=== PATIENT | male | born 1955 | race Caucasian/White ===

== ENCOUNTER → 2016-07-15 | Outpatient (CLI) | payer BC ==
[~2016-07-15] MED LIST: GADOBUTROL 10 MMOL/10 ML VIAL IV ONE
--- NOTE | 2016-07-15 16:10 | RAD ---
PROCEDURE MRI brain with and without contrast HISTORY Unsteady gait. Right hand numbness and tremors. TECHNIQUE Sagittal T1, axial T1, axial T2, axial FLAIR, axial T2 gradient, diffusion imaging with ADC map, post-contrast axial, and post-contrast coronal sequences are provided. 10 milliliters of intravenous Gadavist was administered without complication. COMPARISON None. FINDINGS The ventricles and sulci are within normal limits for age. There is a cavum septum pellucidum et vergae. FLAIR hyperintensities scattered throughout the supratentorial white matter are nonspecific however most suggestive of mild to moderate small vessel ischemic disease. There is no acute intracranial hemorrhage or extra-axial fluid collection. There is no mass effect or midline shift. There is no restricted diffusion to suggest an acute infarct. Sagittal midline structures are unremarkable. Pituitary and suprasellar region are unremarkable. Intracranial flow voids are preserved. There is nonspecific fluid in the optic sheaths which can be a finding of elevated intracranial pressures. There is ethmoid mucosal thickening bilaterally. There is also left maxillary mucosal thickening. Right greater than left mastoid air cells are opacified. There is no pathologic enhancement. IMPRESSION 1. No acute intracranial findings. 2. Brain parenchymal volume loss and mild to moderate probable small-vessel ischemic disease. Electronically signed by: Gibson Horne MD (July 15, 2016 16:09:08)
--- NOTE | 2016-07-15 16:28 | RAD ---
PROCEDURE MRI cervical spine without contrast. HISTORY Right-sided weakness, stiff neck. Gait disorder. TECHNIQUE Sagittal T1, sagittal T2, sagittal STIR, axial T2, and axial T2 gradient sequences are provided. COMPARISON None. FINDINGS There is no malalignment. There is no marrow edema. There is no worrisome marrow lesion. There is no cord signal abnormality. The cervicomedullary junction is unremarkable. Lymph nodes along the cervical chains are presumed reactive. Degenerative findings by individual level are as follows: C2-C3: Minimal disc osteophyte complex and buckling of ligamentum flavum are noted, without canal or foraminal compromise. C3-C4: There is minimal uncinate process spurring without canal or foraminal compromise. C4-C5: There is no canal or foraminal compromise. C5-C6: There is a tiny central protrusion without canal or foraminal compromise. C6-C7: There is no canal or foraminal compromise. C7-T1: There is no canal or foraminal compromise. T1-T2: There is facet hypertrophy with minimal foraminal narrowing. IMPRESSION There are minimal degenerative changes in the cervical spine without any high-grade canal or foraminal compromise. Electronically signed by: Gibson Horne MD (July 15, 2016 16:26:49)
== END | disposition home or self-care (01) ==
LOC: MRI 14:14
PROVIDERS: ATTEND Psychiatry & Neurology Neurology
DX: M47.892 Other spondylosis, cervical region (principal); R26.9 Unspecified abnormalities of gait and mobility
CPT/HCPCS: 70553; 72141; A9585

== ENCOUNTER → 2016-07-15 | Outpatient (CLI) | payer BC ==
[2016-07-15 10:27] LABS: BARBITURATES NEG (NEG); BENZODIAZEPINES NEG (NEG); CANNABINOIDS POS (NEG); COCAINE NEG (NEG); METHADONE NEG (NEG); OPIATES NEG (NEG); PHENCYCLIDINE NEG (NEG)
[2016-07-15 10:33] LABS: ALBUMIN 3.6 g/dL (3.4-5.0); ALBUMIN/GLOBULIN RATIO 0.9 (1.0-1.7); CALCIUM 8.7 mg/dL (8.5-10.1); CREATININE 0.9 mg/dL (0.7-1.3); GFR 86.4; POTASSIUM 4.1 mmol/L (3.5-5.1); TOTAL BILIRUBIN 0.6 mg/dL (0.2-1.0); TOTAL PROTEIN 7.4 g/dL (6.4-8.2)
== END | disposition home or self-care (01) ==
LOC: LAB 09:51
PROVIDERS: ATTEND Psychiatry & Neurology Neurology
DX: G20 Parkinson's disease (principal)
CPT/HCPCS: 36415; 80053; 82550; 82607; 84443; G0481

== ENCOUNTER → 2017-04-22 | Outpatient (CLI) | payer BC ==
[2017-04-22 13:20] LABS: AMPHETAMINE/METHAMPHETAMINE NEG (NEG); BARBITURATES NEG (NEG); BENZODIAZEPINES NEG (NEG); CANNABINOIDS POS (NEG); COCAINE NEG (NEG); ETHANOL, URINE NEG (NEG); METHADONE NEG (NEG); OPIATES NEG (NEG); PHENCYCLIDINE NEG (NEG)
[2017-04-22 13:39] LABS: THYROID STIM HORMONE (TSH) 1.689 uIU/mL (0.358-3.74)
== END | disposition home or self-care (01) ==
LOC: LAB 12:42
DX: G20 Parkinson's disease (principal); E55.9 Vitamin D deficiency, unspecified
CPT/HCPCS: 36415; 80307; 82306; 84443; 86141

== ENCOUNTER → 2017-06-01 | Outpatient (CLI) | payer BC | END | disposition home or self-care (01) | LOC: ECHO 13:35 | DX: I48.91 Unspecified atrial fibrillation (principal) | CPT/HCPCS: 93306 ==

== ENCOUNTER → 2017-08-08 | Outpatient (CLI) | payer BC ==
[2017-08-08 14:37] LABS: BASO # 0.1 x10^3/uL (0.0-0.2); BASO % 1 % (0-3); EOS # 0.3 x10^3/uL (0.0-0.7); EOS % 4 % (0-3); HEMATOCRIT 42.8 % (39.0-53.0); HEMOGLOBIN 14.9 g/dL (13.0-17.5); LYMPH # 1.2 x10^3/uL (1.0-4.8); LYMPH % 17 % (24-48); MEAN CORPUSCULAR HEMOGLOBIN 34 pg (25-35); MEAN CORPUSCULAR HGB CONC 35 g/dL (31-37); MEAN CORPUSCULAR VOLUME 97 fL (79-100); MONO % 13 % (0-9); NEUT # 4.7 x10^3uL (1.8-7.7); NEUT % 65 % (31-73); PLATELET COUNT 213 x10^3/uL (140-400); RED CELL DISTRIBUTION WIDTH 12.8 % (11.5-14.5); WHITE BLOOD COUNT 7.3 x10^3/uL (4.0-11.0)
[2017-08-08 14:38] LABS: ADD MAN DIFF? YES
[2017-08-08 14:53] LABS: ALBUMIN 3.5 g/dL (3.4-5.0); ALBUMIN/GLOBULIN RATIO 1.1 (1.0-1.7); ALK PHOS 89 U/L (46-116); ALT (SGPT) 16 U/L (16-63); ANION GAP 8 (6-14); AST (SGOT) 25 U/L (15-37); BLOOD UREA NITROGEN 18 mg/dL (8-26); BUN/CREATININE RATIO 26 (6-20); CALCIUM 8.7 mg/dL (8.5-10.1); CARBON DIOXIDE 29 mmol/L (21-32); CHLORIDE 105 mmol/L (98-107); CREATININE 0.7 mg/dL (0.7-1.3); GLUCOSE 106 mg/dL (70-99); POTASSIUM 3.6 mmol/L (3.5-5.1); SODIUM 142 mmol/L (136-145); TOTAL BILIRUBIN 0.4 mg/dL (0.2-1.0); TOTAL PROTEIN 6.8 g/dL (6.4-8.2)
[2017-08-08 14:59] LABS: % BANDS 4 % (0-9); % BASOS 2 % (0-3); % EOS 7 % (0-5); % LYMPHS 19 % (24-48); % MONOS 9 % (0-10); % SEGS 59 % (35-66); PLT ESTIMATE ADEQUATE (ADEQUATE); TOXIC GRANULATION SLIGHT
== END | disposition home or self-care (01) ==
LOC: SPEC 14:15
DX: B45.2 Cutaneous cryptococcosis (principal); G00.9 Bacterial meningitis, unspecified; E78.5 Hyperlipidemia, unspecified; E55.9 Vitamin D deficiency, unspecified
CPT/HCPCS: 36415; 80053; 85007; 85025

== ENCOUNTER → 2019-05-24 | Outpatient (CLI) | payer BC ==
[2017-07-22 11:00] VITALS: BP 118/67
[~2019-05-24] MED LIST changes: +ASPI325T8 PO; +ATOR10TA60 PO; +CARB1TAB2 PO; +CEFTRIAXONE SODIUM IVP; +CLON-77 PO; +DILT120C71 PO; -GADOBUTROL 10 MMOL/10 ML VIAL IV ONE; +LACT1CAP19 PO; +MELO7.5T29 PO
--- NOTE | 2019-05-24 09:06 | CARD ---
MR#: [id number] Date of Study: 05/24/2019 Ordering Physician: VELVET FLORES, Referring Physician: VELVET FLORES, Tech: Elie Gu RDCS APPROVED REPORT EXAM: Two-dimensional and M-mode echocardiogram with Doppler and color Doppler. Other Information Quality : AverageHR: 62bpm Rhythm : NSR INDICATION Atrial Fibrillation RISK FACTORS Hyperlipidemia 2D DIMENSIONS RVDd3.8 (2.9-3.5cm)Left Atrium(2D)4.1 (1.6-4.0cm) IVSd0.9 (0.7-1.1cm)Aortic Root(2D)3.8 (2.0-3.7cm) LVDd5.0 (3.9-5.9cm)LVOT Diameter2.2 (1.8-2.4cm) PWd1.0 (0.7-1.1cm)LVDs3.0 (2.5-4.0cm) FS (%) 39.7 %SV81.5 ml LVEF(%)70.0 (>50%) Aortic Valve AoV Peak Gurinder.138.4cm/Yennifer Peak GR.7.7mmHg LVOT Peak Gurinder.105.0cm/sAVA (VMAX)2.83cm2 Mitral Valve MV E Uzjvvgwy37.1cm/sMV DECEL [id number] MV A Rhcpbxvc23.3cm/sE/A Ratio0.8 MV A Xylgabiy474ce Pulmonary Valve PV Peak Mczmqfvh90.2cm/s Tricuspid Valve RAP ENGTHIIC0ooXm Pulmonary Vein S1 Fpelyucv12.4cm/sD2 Ckkcufxr52.4cm/s PVa padesnfy812lhmd LEFT VENTRICLE The left ventricle is normal size. There is normal left ventricular wall thickness. The left ventricu lar systolic function is normal and the ejection fraction is within normal range. The Ejection Fracti on is 60-65%. There is normal LV segmental wall motion. Transmitral Doppler flow pattern is normal fo r age. There is no ventricular septal defect visualized. RIGHT VENTRICLE The right ventricle is normal size. The right ventricular systolic function is normal. ATRIA The left atrium size is normal. The right atrium size is normal. The interatrial septum is intact wit h no evidence for an atrial septal defect or patent foramen ovale as noted on 2-D or Doppler imaging. AORTIC VALVE The aortic valve is mildly sclerotic. Doppler and Color Flow revealed no significant aortic regurgita tion. There is no significant aortic valvular stenosis. MITRAL VALVE The mitral valve is normal in structure and function. There is no mitral valve stenosis. Doppler and Color Flow revealed no mitral valve regurgitation noted. TRICUSPID VALVE The tricuspid valve is normal in structure and function. Doppler and Color Flow revealed no tricuspid valve regurgitation noted. Unable to assess PA pressure. There is no tricuspid valve stenosis. PULMONIC VALVE Doppler and Color Flow revealed no pulmonic valvular regurgitation. There is no pulmonic valvular amanda nosis. GREAT VESSELS The aortic root is normal in size. The ascending aorta is normal in size. The IVC is normal in size a nd collapses >50% with inspiration. PERICARDIAL EFFUSION There is no pleural effusion. There is no evidence of significant pericardial effusion. Critical Notification Critical Value: No <Conclusion> The left ventricular systolic function is normal and the ejection fraction is within normal range. Th e Ejection Fraction is 60-65%. There is normal LV segmental wall motion. Signed by : Deni Finn, Electronically Approved : 05/24/2019 09:06:00
== END | disposition home or self-care (01) ==
LOC: ECHO 07:48
PROVIDERS: ATTEND Internal Medicine Cardiovascular Disease
DX: I35.1 Nonrheumatic aortic (valve) insufficiency (principal); I48.0 Paroxysmal atrial fibrillation
CPT/HCPCS: 93306

== ENCOUNTER → 2020-04-18 | Outpatient (CLI) | payer BC ==
[2017-07-22 11:00] VITALS: BP 118/67
[~2020-04-18] MED LIST changes: +CARB-183 PO; -CARB1TAB2 PO; +REGADENOSON 0.4 MG/5 ML DISP.SYRIN. IV ONE
--- NOTE | 2020-04-18 13:47 | RAD ---
MR#: [id number] Date of Study: 04/18/2020 Ordering Physician: VELVET FLORES, Referring Physician: LEONID LUEVANO Tech: MISAEL Sharma, ARRT (R) (N) APPROVED REPORT Test Type: Pharmacological Stress Nurse/Tech: Darshan Horner RN Test Indications: A. fib Cardiac History: See EMR. Medications: See EMR. Medical History: COPD, Smoker, See EMR. Resting ECG: SR Resting Heart Rate: 61 bpm Resting Blood Pressure: 144/73mmHg Pretest Chest Pain: No chest pain Nurse/Tech Notes Lungs diminished throughout, heart tones regular. Consent: The procedure was explained to the patient in lay terms. Informed consent was witnessed. Rolly eout was entered into [employer]. History and Stress Test performed by [facility]. Details Pharmacologic stress testing was performed using 0.4mg per 5ml of regadenoson given intravenously ove r 7-10 seconds. Stress Symptoms No chest pain or symptoms. POST EXERCISE Reason for Termination: Infusion complete Max HR: 116 bpm Max Blood Pressure: 138/69mmHg Blood Pressure response to exercise: Normal blood pressure response during stress. Heart Rate response to exercise: WNL Chest Pain: No. Arrhythmia: No. ST Change: No. INTERPRETATION Stress EKG Conclusion: No evidence of stress induced EKG changes. Imaging Protocol IMAGE PROTOCOL: Rest Tc-99m/stress Tc-99m 1 day Rest: Stress: Viability: Radiopharm.Tc99m MbihqyhnrTd87w Sestamibi Gbyx54lTe 32mCi Img Date 04/18/2020 04/18/2020 Inj-Img Tghw80hzk. 60min. Rest Admin Site:IV - Right HandAdministrator:RT Bhaskar (R)(N) Stress Admin Site: IV - Right HandAdministrator: RT Bhaskar (R)(N) STRESS DATA End Diast. Vol.121.0mlLVEDV index BSA54.0ml End Syst. Vol.39.0mlLVESV index BSA17.0ml Myocardial Yndj434.0gEject. Bxocycsx19.0% Stress Scores Regional WT2.00Summed WT7.00 Regional WM0.00Summed WM1.00 LV Perfusion Normal perfusion at stress. Resting apical defect, likely artifact. Wall Motion Normal wall motion. EF > 65% LV Perf. Quant 17 Seg. SSS1.00 17 Seg. SRS7.00 17 Seg. SDS0.00 Stress Defect Extent (% LAD)5.00Rest Defect Extent (% LAD)20.60Rev. Defect Extent (% LAD)0.00 Stress Defect Extent (% LCX) 1.30Rest Defect Extent (% LCX)23.80Rev. Defect Extent (% LCX)0.00 Stress Defect Extent (% RCA)0.00Rest Defect Extent (% RCA)3.30Rev. Defect Extent (% RCA)0.00 Stress Defect Extent (% OTIS)2.00Rest Defect Extent (% OTIS)13.70Rev. Defect Extent (% OTIS)0.00 Other Information Quality:Fair Risk Assessment: Low Risk Conclusion 1. No evidence of stress induced EKG changes. 2. Normal perfusion at stress. Resting images demonstrate apical perfusion defect suggestive of artif act 3. Normal EF at > 65% 4. Low risk study overall. Signed by : Deni Finn, Electronically Approved : 04/18/2020 13:47:28
== END ==
LOC: NM 09:09
PROVIDERS: ATTEND Internal Medicine Cardiovascular Disease
DX: I48.0 Paroxysmal atrial fibrillation (principal); Z87.891 Personal history of nicotine dependence
CPT/HCPCS: 78452; 93017; A9500; J2785

== ENCOUNTER → 2020-11-12 | Outpatient (CLI) | payer BC ==
[2017-07-22 11:00] VITALS: BP 118/67
[~2020-11-12] MED LIST changes: +PERFLUTREN PROTEIN-A MICROSPHR 0.22 MG/ML 3 ML VIAL. IV ONE; -REGADENOSON 0.4 MG/5 ML DISP.SYRIN. IV ONE
--- NOTE | 2020-11-12 16:46 | CARD ---
MR#: [id number] Date of Study: 11/12/2020 Ordering Physician: VELEVT BILLINGS, Referring Physician: VELVET BILLINGS, Tech: Lalo Mallory HODAN APPROVED REPORT EXAM: Two-dimensional and M-mode echocardiogram with Doppler and color Doppler. Other Information Quality : Technically LimitedHR: 54bpm Rhythm : NSR INDICATION Cardiac Disease: RISK FACTORS Hypertension Obesity Hyperlipidemia Smoking 2D DIMENSIONS RVDd3.2 (2.9-3.5cm)Left Atrium(2D)4.0 (1.6-4.0cm) IVSd1.2 (0.7-1.1cm)Aortic Root(2D)3.3 (2.0-3.7cm) LVDd4.8 (3.9-5.9cm)LVOT Diameter2.5 (1.8-2.4cm) PWd1.1 (0.7-1.1cm)LVDs3.5 (2.5-4.0cm) FS (%) 27.0 %SV56.3 ml LVEF(%)52.5 (>50%) Aortic Valve AoV Peak Gurinder.151.4cm/sAoV VTI38.5cm AO Peak GR.9.2mmHgLVOT Peak Gurinder.100.4cm/s AO Mean GR.5mmHgAVA (VMAX)3.15cm2 Mitral Valve MV E Xpsjxgkp62.4cm/sMV DECEL PSHC878uk MV A Bzcvgeme16.2cm/sE/A Ratio1.0 Pulmonary Valve PV Peak Yvvpctku91.6cm/s LEFT VENTRICLE The left ventricle is normal size. There is borderline to mild concentric left ventricular hypertroph y. The left ventricular systolic function is normal. Estimated ejection fraction 60%. There is normal LV segmental wall motion. Transmitral Doppler flow pattern is Grade II-pseudonormal filling dynamics . RIGHT VENTRICLE The right ventricle is normal size. There is normal right ventricular wall thickness. The right ventr icular systolic function is normal. ATRIA The left atrium size is normal. The right atrium size is normal. The interatrial septum is intact wit h no evidence for an atrial septal defect or patent foramen ovale as noted on 2-D or Doppler imaging. AORTIC VALVE The aortic valve is normal in structure and function. Doppler and Color Flow revealed no significant aortic regurgitation. There is no significant aortic valvular stenosis. MITRAL VALVE The mitral valve is normal in structure and function. There is no evidence of mitral valve prolapse. There is no mitral valve stenosis. Doppler and Color-flow revealed mild mitral regurgitation. TRICUSPID VALVE The tricuspid valve is normal in structure and function. Doppler and Color Flow revealed no tricuspid valve regurgitation noted. There is no tricuspid valve stenosis. PULMONIC VALVE The pulmonary valve is normal in structure and function. Doppler and Color Flow revealed mild pulmoni c valvular regurgitation. GREAT VESSELS The aortic root is normal in size. The ascending aorta is normal in size. The IVC is normal in size a nd collapses >50% with inspiration. PERICARDIAL EFFUSION There is no evidence of significant pericardial effusion. Critical Notification Critical Value: No <Conclusion> The left ventricular systolic function is normal. Estimated ejection fraction 60%. There is normal LV segmental wall motion. Transmitral Doppler flow pattern is Grade II-pseudonormal filling dynamics. Mild mitral regurgitation. There is no evidence of significant pericardial effusion. Signed by : Velvet Billings, Electronically Approved : 11/12/2020 16:45:49
== END ==
LOC: ECHO 08:32
PROVIDERS: ATTEND Internal Medicine Cardiovascular Disease
DX: I34.0 Nonrheumatic mitral (valve) insufficiency (principal); I37.1 Nonrheumatic pulmonary valve insufficiency; Z68.44 Body mass index [BMI] 60.0-69.9, adult; I48.0 Paroxysmal atrial fibrillation; I10 Essential (primary) hypertension; E66.9 Obesity, unspecified; E78.5 Hyperlipidemia, unspecified; F17.200 Nicotine dependence, unspecified, uncomplicated
CPT/HCPCS: C8929; Q9956